=== PATIENT | male | born 1965 | race African-American/Black ===

== ENCOUNTER 2017-10-13 22:30 | Inpatient (IN) | payer OTHER ==
[2017-10-13 22:40] VITALS: BMI 29.9
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
[2017-10-13] MEDS ORDERED: METHADONE HCL 10 MG TABLET (FOR DETOX USE ONLY) PO ONE ×2 (23:00→23:07)
[2017-10-13] MEDS ORDERED: IBUPROFEN 400 MG TABLET (FP) PO PRN (23:07)
[2017-10-13] MEDS ORDERED: chlordiazePOXIDE HCL 25 MG CAPSULE PO PRN (23:07)
[2017-10-13] MEDS ORDERED: ACETAMINOPHEN 325 MG TABLET (FP) PO PRN (23:07)
[2017-10-13] MEDS ORDERED: MAGNESIUM HYDROX 2400MG/30ML ORAL SUSPENSION 30 ML CUP PO PRN (23:07)
[2017-10-13] MEDS ORDERED: MENTHOL/PHENOL 1 EACH UD MM PRN (23:07)
[2017-10-13] MEDS ORDERED: P-EPHED 60MG/TRIPROLIDI 2.5MG TABLET PO PRN (23:07)
[2017-10-13] MEDS ORDERED: LOPERAMIDE HCL 2 MG CAPSULE PO PRN (23:07)
[2017-10-13] MEDS ORDERED: chlordiazePOXIDE HCL 25 MG CAPSULE PO ONE (23:07)
[2017-10-13] MEDS ORDERED: guaiFENesin/D-METHORPHAN HB 10 ML UNIT-DOSE CUPS PO PRN (23:07)
[2017-10-13] MEDS ORDERED: NICOTINE POLACRILEX 2 MG GUM BC PRN (23:07)
[2017-10-13] MEDS ORDERED: MAG HYDROX/AL HYDROX/SIMETH 30 ML UNIT-DOSE CUP PO PRN (23:07)
[2017-10-13] MEDS ORDERED: MAGNESIUM CITRATE 300 ML BOTTLE PO PRN (23:07)
[2017-10-13] MEDS ORDERED: hydrOXYzine PAMOATE 50 MG CAPSULE (FP) PO PRN (23:07)
[2017-10-13] MEDS ORDERED: ALBUTEROL SO4 18 GM HFA INHALER IH PRN (23:10)
[2017-10-13] MEDS: chlordiazePOXIDE HCL 25 MG CAPSULE PO SCH (23:44)
[2017-10-14 02:14] LABS: URINE APPEARANCE SLCLOUDY; URINE BILIRUBIN NEGATIVE (NEGATIVE); URINE BLOOD NEGATIVE (NEGATIVE); URINE COLOR AMBER; URINE GLUCOSE (UA) NEGATIVE (NEGATIVE); URINE KETONE NEGATIVE (NEGATIVE); URINE NITRITE NEGATIVE (NEGATIVE); URINE PROTEIN NEGATIVE (NEGATIVE); URINE UROBILINOGEN 4.0 E.U/dl mg/dL (0.2-1.0)
[2017-10-14] MEDS: chlordiazePOXIDE HCL 25 MG CAPSULE PO SCH ×4 (05:10→22:11)
--- NOTE | 2017-10-14 09:02 | EKG ---
Test Reason : Blood Pressure : / mmHG Vent. Rate : 083 BPM Atrial Rate : 083 BPM P-R Int : 124 ms QRS Dur : 074 ms QT Int : 358 ms P-R-T Axes : 072 -06 037 degrees QTc Int : 420 ms SINUS RHYTHM WITH MARKED SINUS ARRHYTHMIA POSSIBLE LEFT ATRIAL ENLARGEMENT BORDERLINE ECG NO PREVIOUS ECGS AVAILABLE Confirmed by OMA DESAI MD ([id number]) on 10/14/2017 9:01:44 AM Referred By: DORY CELESTE Confirmed By:OMA DESAI MD
[2017-10-14] MEDS ORDERED: METHADONE HCL 10 MG TABLET (FOR DETOX USE ONLY) PO SCH (10:00)
[2017-10-14] MEDS: NICOTINE 14 MG/24 HOURS TOPICAL PATCH TD SCH (10:13)
[2017-10-14] MEDS: PRENATAL VITAMINS W/ FOLIC ACID TABLET (FP) PO SCH (10:13)
[2017-10-14 10:49] LABS: URINE LEUK ESTERASE Negative (NEGATIVE)
--- NOTE | 2017-10-14 14:26 | PN ---
[facility] CIWA - CIWA Score Nausea/Vomitin-No Nausea/No Vomiting Muscle Tremors: 2 Anxiety: 5 Agitation: 4-Moderately Restless Paroxysmal Sweats: No Perspiration Orientation: 4Disoriented Place/Person Tacttile Disturbances: 2-Mild Itch/Numbness/Burn Auditory Disturbances: 0-None Visual Disturbances: 2-Mild Sensitivity Headache: 0-None Present CIWA-Ar Total Score: 19 S COWS - Scale Resting Pulse: 0= [place] 80 or Below Sweatin= Chills/Flushing Restless Observation: 0= Sits Still Pupil Size: 0= Normal to Room Light Bone or Joint Aches: 2= Severe Diffuse Aches Runny Nose/ Eye Tearin= Runny Nose/Eyes GI Upset > 30mins: 2= Nausea/Diarrhea Tremor Observation of Outstretched Hands: 0= None Yawning Observation: 0= None Anxiety or Irritability: 2=Irritable/Anxious Goose Flesh Skin: 3=Piloerection COWS Score: 12 S Progress Note (SOAP) Subjective: Body Aches, Diarrhea, Interrupted sleep, Anxious. Objective: PT. A & O X 2 (UNCERTAIN ABOUT CURRENT LOCATION). NO ACUTE DISTRESS. 10/14/17 14:23 Vital Signs Temperature 96.4 F L 10/14/17 13:21 Pulse Rate 56 L 10/14/17 13:21 Respiratory Rate 18 10/14/17 13:21 Blood Pressure 128/76 10/14/17 13:21 O2 Sat by Pulse Oximetry (%) Laboratory Tests 10/13/17 23:00 Urine Color Jessica Urine Appearance Slcloudy Urine pH 5.0 Ur Specific [place] 1.029 Urine Protein Negative Urine Glucose (UA) Negative Urine Ketones Negative Urine Blood Negative Urine Nitrite Negative Urine Bilirubin Negative Urine Urobilinogen 4.0 e.u/dl Ur Leukocyte Esterase Negative UA RESULTS NOTED. PATIENT REFUSED TO HAVE OTHER ADMISSION LABS DRAWN. 10/14/17 14:25 Assessment: 10/14/17 14:25 WITHDRAWAL SYMPTOMS. Plan: CONTINUE DETOX. PRN IMMODIUM FOR DIARRHEA. INCREASE DAILY PO FLUID INTAKE. ENCOURAGE AMBULATION.
[2017-10-14] MEDS ORDERED: THIAMINE HCL 100 MG TABLET (FP) PO SCH (22:00)
[2017-10-15] MEDS: chlordiazePOXIDE HCL 25 MG CAPSULE PO SCH ×2 (05:10→10:28)
[2017-10-15] MEDS ORDERED: METHADONE HCL 5 MG TABLET (FOR DETOX USE ONLY) PO SCH (10:00)
[2017-10-15] MEDS: PRENATAL VITAMINS W/ FOLIC ACID TABLET (FP) PO SCH (10:27)
[2017-10-15] MEDS: NICOTINE 14 MG/24 HOURS TOPICAL PATCH TD SCH (10:27)
[2017-10-15 13:17] VITALS: BP 144/78; PULSE 59; TEMP 98.7
--- NOTE | 2017-10-15 15:03 | PN ---
S CIWA - CIWA Score Nausea/Vomitin-Mild Nausea/No Vomiting Muscle Tremors: 4-Moderate,w/Arms Extend Anxiety: 5 Agitation: 4-Moderately Restless Paroxysmal Sweats: 3 Orientation: 0-Oriented Tacttile Disturbances: 1-Very Mild Itch/Numbness Auditory Disturbances: 0-None Visual Disturbances: 0-None Headache: 2-Mild CIWA-Ar Total Score: 20 BHS COWS - Scale Resting Pulse: 0= [place] 80 or Below Sweatin=Flushed/Facial Moisture Restless Observation: 3= Extraneous Movement Pupil Size: 0= Normal to Room Light Bone or Joint Aches: 2= Severe Diffuse Aches Runny Nose/ Eye Tearin= Runny Nose/Eyes GI Upset > 30mins: 3= Vomiting/Diarrhea Tremor Observation of Outstretched Hands: 2= Slight Tremor Visible Yawning Observation: 0= None Anxiety or Irritability: 2=Irritable/Anxious Goose Flesh Skin: 0=Smooth Skin COWS Score: 16 BHS Progress Note (SOAP) Subjective: Poor appetite, loud, angry, very agitated and irritable, (patient is disrespectful to abstract writer and staff), abdominal cramps, interrupted sleep, diarrhea Objective: 10/15/17 15:02 Last Vital Signs Temp Pulse Resp BP Pulse Ox 98.7 F 59 L 18 144/78 10/15/17 13:16 10/15/17 13:16 10/15/17 13:16 10/15/17 13:16 Laboratory Tests 10/13/17 23:00 Urine Color Jessica Urine Appearance Slcloudy Urine pH 5.0 Ur Specific [place] 1.029 Urine Protein Negative Urine Glucose (UA) Negative Urine Ketones Negative Urine Blood Negative Urine Nitrite Negative Urine Bilirubin Negative Urine Urobilinogen 4.0 e.u/dl Ur Leukocyte Esterase Negative UA result noted No CBC/Chemistry result available Assessment: 10/15/17 15:03 Withdrawal symptoms Plan: Continue detox Encouraged to drink lots of water
--- NOTE | 2017-10-15 15:07 | DS ---
[facility] Detox Discharge Summary Admission Date: 10/13/17 Discharge Date: 10/15/17 - History Present History: Alcohol Dependence, Opioid Dependence Pertinent Past History: Asthma - Physical Exam Results Vital Signs: Vital Signs Temperature 98.7 F 10/15/17 13:16 Pulse Rate 59 L 10/15/17 13:16 Respiratory Rate 18 10/15/17 13:16 Blood Pressure 144/78 10/15/17 13:16 O2 Sat by Pulse Oximetry (%) Pertinent Admission Physical Exam Findings: Withdrawal symptoms Last Vital Signs Temp Pulse Resp BP Pulse Ox 98.7 F 59 L 18 144/78 10/15/17 13:16 10/15/17 13:16 10/15/17 13:16 10/15/17 13:16 Laboratory Tests 10/13/17 23:00 Urine Color Jessica Urine Appearance Slcloudy Urine pH 5.0 Ur Specific [place] 1.029 Urine Protein Negative Urine Glucose (UA) Negative Urine Ketones Negative Urine Blood Negative Urine Nitrite Negative Urine Bilirubin Negative Urine Urobilinogen 4.0 e.u/dl Ur Leukocyte Esterase Negative UA noted - Medication Discharge Medications: Ambulatory Orders Albuterol Sulfate Inhaler - [Ventolin Hfa Inhaler -] 2 inh PO Q6H 10/13/17 - Diagnosis (1) Alcohol dependence with uncomplicated withdrawal Current Visit: Yes Status: Acute (2) Opioid dependence with withdrawal Current Visit: Yes Status: Acute (3) Asthma Current Visit: Yes Status: Chronic (4) Nicotine dependence Current Visit: Yes Status: Chronic - AMA Did Patient Leave Against Medical Advice: Yes (F/U with PCP within 3 days)
[2017-10-15] MEDS ORDERED: chlordiazePOXIDE 5 MG CAPSULE PO SCH (23:00)
[2017-10-16] MEDS ORDERED: chlordiazePOXIDE HCL 10 MG CAPSULE PO SCH (23:00)
[2017-10-17] MEDS ORDERED: METHADONE HCL 10 MG TABLET (FOR DETOX USE ONLY) PO SCH (10:00)
[2017-10-18] MEDS ORDERED: METHADONE HCL 5 MG TABLET (FOR DETOX USE ONLY) PO SCH (06:00)
== END 2017-10-15 14:51 | disposition home or self-care (01) | DRG 773 ==
LOC: YASAS 22:30 → Y3N 22:46
PROVIDERS: ADMIT Internal Medicine; ATTEND Internal Medicine
PROC: HZ2ZZZZ Detoxification Services for Substance Abuse Treatment (ICD-10-PCS; principal; 2017-10-13)
DX: F11.23 Opioid dependence with withdrawal (principal); F10.230 Alcohol dependence with withdrawal, uncomplicated; F17.210 Nicotine dependence, cigarettes, uncomplicated; J45.909 Unspecified asthma, uncomplicated
CPT/HCPCS: 81003; 93005; 93010

== ENCOUNTER 2019-12-20 10:15 | Inpatient (IN) | payer OTHER ==
[2019-12-20 11:03] VITALS: BMI 29.9
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
[2019-12-20] MEDS ORDERED: MENTHOL/PHENOL 1 EACH UD MM PRN (11:08)
[2019-12-20] MEDS ORDERED: MAGNESIUM HYDROX 2400MG/30ML ORAL SUSPENSION 30 ML CUP PO PRN (11:08)
[2019-12-20] MEDS ORDERED: MAGNESIUM CITRATE 300 ML BOTTLE PO PRN (11:08)
[2019-12-20] MEDS ORDERED: ACETAMINOPHEN 325 MG TABLET (FP) PO PRN ×2 (11:08)
[2019-12-20] MEDS ORDERED: BISMUTH SUBSALICYLATE 262 MG/15 ML BTL PO PRN (11:08)
[2019-12-20] MEDS ORDERED: IBUPROFEN 400 MG TABLET (FP) PO PRN (11:08)
[2019-12-20] MEDS ORDERED: METHADONE HCL 10 MG TABLET (FOR DETOX USE ONLY) PO ONE (11:50)
[2019-12-20] MEDS: hydrOXYzine PAMOATE 25 MG CAPSULE (FP) PO PRN (12:11)
[2019-12-20] MEDS: ALBUTEROL SO4 HFA INHALER IH SCH ×3 (12:13→23:06)
[2019-12-20] MEDS: cloNIDine HCL 0.1 MG TABLET PO PRN (12:18)
[2019-12-20 14:47] LABS: HEMATOCRIT 39.8 % (35.4-49); HEMOGLOBIN 13.6 GM/dL (11.7-16.9); MCH 29.6 pg (25.7-33.7); MEAN CELL VOLUME 86.9 fl (80-96); MEAN PLT VOLUME 9.4 fl (7.5-11.1); PLATELET COUNT 151 K/MM3 (134-434); RBC 4.58 M/mm3 (4.00-5.60); RDW 13.5 % (11.9-15.9); WHITE BLOOD COUNT 4.8 K/mm3 (4.0-10.0)
[2019-12-20 14:55] LABS: ALBUMIN 3.9 g/dl (3.4-5.0); BILIRUBIN,TOTAL 0.6 mg/dL (0.2-1); BLOOD UREA NITROGEN 17.1 mg/dL (7-18); CALCIUM 8.8 mg/dL (8.5-10.1); TOT PROT 7.8 g/dl (6.4-8.2)
[2019-12-20] MEDS: THIAMINE HCL 100 MG TABLET (FP) PO SCH (23:05)
[2019-12-20] MEDS: MELATONIN 5 MG TABLETS PO PRN (23:06)
[2019-12-21] MEDS: ALBUTEROL SO4 HFA INHALER IH SCH ×4 (05:21→23:24)
[2019-12-21] MEDS ORDERED: METHADONE HCL 5 MG TABLET (FOR DETOX USE ONLY) ONE (09:40)
[2019-12-21] MEDS ORDERED: METHADONE HCL 10 MG TABLET (FOR DETOX USE ONLY) ONE (09:40)
[2019-12-21] MEDS ORDERED: METHADONE (DETOX) 20 MG, METHADONE (DETOX) 5 MG PO ONE (10:00)
--- NOTE | 2019-12-21 10:16 | PN ---
BHS COWS - Scale Resting Pulse: 0= [place] 80 or Below Sweatin= Chills/Flushing Restless Observation: 1= Difficult to Sit Still Pupil Size: 0= Normal to Room Light Bone or Joint Aches: 2= Severe Diffuse Aches Runny Nose/ Eye Tearin= Nasal Congestion GI Upset > 30mins: 2= Nausea/Diarrhea Tremor Observation of Outstretched Hands: 1= Tremor [place], Not Seen Yawning Observation: 0= None Anxiety or Irritability: 1=Feels Anxious/Irritable Goose Flesh Skin: 3=Piloerection COWS Score: 12 BHS Progress Note (SOAP) Subjective: Interrupted sleep, abdominal cramps, generalized pain Objective: 12/21/19 10:14 Withdrawal sx Laboratory Last Values WBC 4.8 K/mm3 (4.0-10.0) 12/20/19 11:55 RBC 4.58 M/mm3 (4.00-5.60) 12/20/19 11:55 Hgb 13.6 GM/dL (11.7-16.9) 12/20/19 11:55 Hct 39.8 % (35.4-49) 12/20/19 11:55 MCV 86.9 fl (80-96) 12/20/19 11:55 MCH 29.6 pg (25.7-33.7) 12/20/19 11:55 MCHC 34.0 g/dl (32.0-35.9) 12/20/19 11:55 RDW 13.5 % (11.9-15.9) 12/20/19 11:55 Plt Count 151 K/MM3 (134-434) 12/20/19 11:55 MPV 9.4 fl (7.5-11.1) 12/20/19 11:55 Sodium 139 mmol/L (136-145) 12/20/19 11:55 Potassium 4.0 mmol/L (3.5-5.1) 12/20/19 11:55 Chloride 108 mmol/L (98-107) H 12/20/19 11:55 Carbon Dioxide 25 mmol/L (21-32) 12/20/19 11:55 Anion Gap 6 MMOL/L (8-16) L 12/20/19 11:55 BUN 17.1 mg/dL (7-18) 12/20/19 11:55 Creatinine 1.0 mg/dL (0.55-1.3) 12/20/19 11:55 Est GFR (CKD-EPI)AfAm 97.08 12/20/19 11:55 Est GFR (CKD-EPI)NonAf 83.76 12/20/19 11:55 Random Glucose 97 mg/dL (74-106) 12/20/19 11:55 Calcium 8.8 mg/dL (8.5-10.1) 12/20/19 11:55 Total Bilirubin 0.6 mg/dL (0.2-1) 12/20/19 11:55 AST 25 U/L (15-37) 12/20/19 11:55 ALT 37 U/L (13-61) 12/20/19 11:55 Alkaline Phosphatase 92 U/L (45-117) 12/20/19 11:55 Total Protein 7.8 g/dl (6.4-8.2) 12/20/19 11:55 Albumin 3.9 g/dl (3.4-5.0) 12/20/19 11:55 Labs noted Vital Signs 12/21/19 12/21/19 03:33 06:20 Temperature 98.1 F Pulse Rate 55 L Respiratory 18 16 Rate Blood Pressure 146/86 VSS No apparent distress Assessment: 12/21/19 10:15 Withdrawal sx Plan: Continue detox Encourage oral fluid intake
[2019-12-21] MEDS: PRENATAL VITAMINS W/ FOLIC ACID TABLET (FP) PO SCH (10:40)
[2019-12-21] MEDS: NICOTINE 7 MG/24 HOURS TOPICAL PATCH TD SCH (10:40)
[2019-12-21] MEDS: METHOCARBAMOL 500 MG TABLET PO PRN (10:43)
[2019-12-21] MEDS: hydrOXYzine PAMOATE 25 MG CAPSULE (FP) PO PRN ×2 (11:30→22:07)
[2019-12-21] MEDS: THIAMINE HCL 100 MG TABLET (FP) PO SCH (22:06)
[2019-12-21] MEDS: MELATONIN 5 MG TABLETS PO PRN (22:07)
[2019-12-21] MEDS ORDERED: TRIMETHOBENZAMIDE HCL 200MG/2ML INJ IM ONE (23:37)
[2019-12-21] MEDS ORDERED: PROCHLORPERAZINE MALEATE 5 MG TABLET PO PRN (23:37)
[2019-12-22] MEDS: hydrOXYzine PAMOATE 25 MG CAPSULE (FP) PO PRN ×3 (00:47→22:03)
[2019-12-22] MEDS ORDERED: METHADONE HCL 10 MG TABLET (FOR DETOX USE ONLY) PO ONE ×2 (02:13→10:00)
--- NOTE | 2019-12-22 02:19 | PN ---
[facility] Progress Note Note: C/o continued discomfort and nausea. States withdrawal symptoms are too much. States wants to leave now and use. States, loudly, " You don't understand". States "I just need to feel comfortable " Assess: Increased facial moisture Increased bowel sounds. Abd soft and non-tender. Pupils = and 3 mm. Lungs CTA Blood pressure elevated. Vital Signs 12/21/19 12/22/19 12/22/19 20:25 00:05 00:27 Temperature 98.6 F Pulse Rate 50 L Respiratory 18 18 18 Rate Blood Pressure 146/71 12/22/19 00:41 Temperature Pulse Rate 49 L Respiratory Rate Blood Pressure 170/82 Plan: Clonidine 0.1 po now Once dose methadone 10 mg PO now. Discussed the risks of overdose. Discussed the benefits of staying needs to outweigh leaving.
[2019-12-22] MEDS: cloNIDine HCL 0.1 MG TABLET PO PRN ×2 (02:27→10:18)
[2019-12-22] MEDS: ALBUTEROL SO4 HFA INHALER IH SCH ×3 (06:16→18:21)
[2019-12-22] MEDS: PRENATAL VITAMINS W/ FOLIC ACID TABLET (FP) PO SCH (10:16)
[2019-12-22] MEDS: NICOTINE 7 MG/24 HOURS TOPICAL PATCH TD SCH (10:20)
--- NOTE | 2019-12-22 11:32 | PN ---
BHS COWS - Scale Resting Pulse: 0= [place] 80 or Below Sweatin= Chills/Flushing Restless Observation: 0= Sits Still Pupil Size: 0= Normal to Room Light Bone or Joint Aches: 2= Severe Diffuse Aches Runny Nose/ Eye Tearin= Runny Nose/Eyes GI Upset > 30mins: 1= Stomach Cramp Tremor Observation of Outstretched Hands: 2= Slight Tremor Visible Yawning Observation: 0= None Anxiety or Irritability: 2=Irritable/Anxious Goose Flesh Skin: 0=Smooth Skin COWS Score: 10 BHS Progress Note (SOAP) Subjective: Stomachache, vomiting all night, restless, interrupted sleep, agitation Objective: 12/22/19 11:30 Last Vital Signs Temp Pulse Resp BP Pulse Ox 98.8 F 49 L 18 153/66 12/22/19 08:58 12/22/19 08:58 12/22/19 08:58 12/22/19 08:58 Elevated b/p: denies htn, on clonidine prn Laboratory Tests 12/20/19 12/20/19 12/20/19 11:55 11:55 11:55 WBC 4.8 RBC 4.58 Hgb 13.6 Hct 39.8 MCV 86.9 MCH 29.6 MCHC 34.0 RDW 13.5 Plt Count 151 MPV 9.4 Sodium 139 Potassium 4.0 Chloride 108 H Carbon Dioxide 25 Anion Gap 6 L BUN 17.1 Creatinine 1.0 Est GFR (CKD-EPI)AfAm 97.08 Est GFR (CKD-EPI)NonAf 83.76 Random Glucose 97 Calcium 8.8 Total Bilirubin 0.6 AST 25 ALT 37 Alkaline Phosphatase 92 Total Protein 7.8 Albumin 3.9 RPR Titer Nonreactive Labs reviewed Assessment: 12/22/19 11:30 Withdrawal sxs Elevated b/p noted Plan: Continue detox Encouraged PO water hydration Ensure one cup PO bid prn poor appetite Repeat BMP due to c/o vomiting all night Elevated b/p: monitor b/p, continue prn clonidine
[2019-12-22] MEDS: MELATONIN 5 MG TABLETS PO PRN (22:03)
[2019-12-22] MEDS: METHOCARBAMOL 500 MG TABLET PO PRN (22:03)
[2019-12-22] MEDS: THIAMINE HCL 100 MG TABLET (FP) PO SCH (22:03)
[2019-12-23] MEDS: ALBUTEROL SO4 HFA INHALER IH SCH ×5 (01:01→23:23)
[2019-12-23] MEDS ORDERED: cloNIDine HCL 0.1 MG TABLET PO ONE (09:33)
--- NOTE | 2019-12-23 09:38 | PN ---
S CIWA - CIWA Score Nausea/Vomitin-Mild Nausea/No Vomiting Muscle Tremors: 2 Anxiety: 2 Agitation: 2 Paroxysmal Sweats: No Perspiration Orientation: 0-Oriented Tacttile Disturbances: 1-Very Mild Itch/Numbness Auditory Disturbances: 0-None Visual Disturbances: 0-None Headache: 1-Very Mild CIWA-Ar Total Score: 9 BHS Progress Note (SOAP) Subjective: alert,irritable,anxious,interrupted sleep,nausea,pain in the body Objective: 12/23/19 09:37 Vital Signs Temperature 98.6 F 12/23/19 07:29 Pulse Rate 52 L 12/23/19 07:29 Respiratory Rate 18 12/23/19 07:29 Blood Pressure 128/72 12/23/19 07:29 O2 Sat by Pulse Oximetry (%) Assessment: 12/23/19 09:37 withdrawal symptom Plan: continue detox methadone regimen,clonidine 0.1mg bid
[2019-12-23] MEDS ORDERED: METHADONE HCL 10 MG TABLET (FOR DETOX USE ONLY) ONE (09:39)
[2019-12-23] MEDS ORDERED: METHADONE HCL 5 MG TABLET (FOR DETOX USE ONLY) ONE (09:39)
[2019-12-23] MEDS ORDERED: METHADONE (DETOX) 10 MG, METHADONE (DETOX) 5 MG PO ONE (10:00)
[2019-12-23] MEDS: PRENATAL VITAMINS W/ FOLIC ACID TABLET (FP) PO SCH (10:29)
[2019-12-23] MEDS: hydrOXYzine PAMOATE 25 MG CAPSULE (FP) PO PRN (10:30)
[2019-12-23] MEDS: NICOTINE 7 MG/24 HOURS TOPICAL PATCH TD SCH (10:31)
[2019-12-23] MEDS: cloNIDine HCL 0.1 MG TABLET PO SCH ×2 (10:33→22:12)
[2019-12-23] MEDS: MAG HYDROX/AL HYDROX/SIMETH 30 ML UNIT-DOSE CUP PO PRN ×2 (10:33→22:14)
[2019-12-23] MEDS: THIAMINE HCL 100 MG TABLET (FP) PO SCH (22:12)
[2019-12-23] MEDS: MELATONIN 5 MG TABLETS PO PRN (22:15)
[2019-12-24] MEDS: ALBUTEROL SO4 HFA INHALER IH SCH ×4 (05:28→23:14)
--- NOTE | 2019-12-24 09:46 | PN ---
BHS COWS - Scale Resting Pulse: 0= [place] 80 or Below Sweatin= No chills or Flushing Restless Observation: 0= Sits Still Pupil Size: 1= Pupils >than Normal Bone or Joint Aches: 1= Mild Discomfort Runny Nose/ Eye Tearin= Nasal Congestion GI Upset > 30mins: 1= Stomach Cramp Tremor Observation of Outstretched Hands: 1= Tremor [place], Not Seen Yawning Observation: 0= None Anxiety or Irritability: 1=Feels Anxious/Irritable Goose Flesh Skin: 0=Smooth Skin COWS Score: 6 BHS Progress Note (SOAP) Subjective: alert,irritable,interrupted sleep,pain in the body Objective: 12/24/19 09:45 Vital Signs Temperature 98.8 F 12/24/19 08:30 Pulse Rate 68 12/24/19 08:30 Respiratory Rate 18 12/24/19 08:30 Blood Pressure 122/66 12/24/19 08:30 O2 Sat by Pulse Oximetry (%) Assessment: 12/24/19 09:46 withdrawal symptom Plan: continue detox methadone regimen,discharge in am
[2019-12-24] MEDS: PRENATAL VITAMINS W/ FOLIC ACID TABLET (FP) PO SCH (09:51)
[2019-12-24] MEDS: cloNIDine HCL 0.1 MG TABLET PO SCH ×2 (09:51→22:05)
[2019-12-24] MEDS: NICOTINE 7 MG/24 HOURS TOPICAL PATCH TD SCH (09:52)
[2019-12-24] MEDS ORDERED: METHADONE HCL 10 MG TABLET (FOR DETOX USE ONLY) PO ONE (10:00)
[2019-12-24] MEDS: MELATONIN 5 MG TABLETS PO PRN (22:05)
[2019-12-24] MEDS: THIAMINE HCL 100 MG TABLET (FP) PO SCH (22:06)
[2019-12-25] MEDS ORDERED: METHADONE HCL 5 MG TABLET (FOR DETOX USE ONLY) PO ONE (06:00)
[2019-12-25] MEDS: ALBUTEROL SO4 HFA INHALER IH SCH ×2 (07:53→11:09)
--- NOTE | 2019-12-25 09:17 | DS ---
[facility] Detox Discharge Summary Admission Date: 12/20/19 Discharge Date: 12/25/19 (appox@35min to discharge) - History Present History: Alcohol Dependence, Opioid Dependence - Physical Exam Results Vital Signs: Vital Signs Temperature 99.3 F 12/24/19 20:30 Pulse Rate 59 L 12/24/19 20:30 Respiratory Rate 18 12/25/19 03:38 Blood Pressure 115/60 12/24/19 20:30 O2 Sat by Pulse Oximetry (%) Pertinent Admission Physical Exam Findings: Vital Signs Temperature 99.3 F 12/24/19 20:30 Pulse Rate 59 L 12/24/19 20:30 Respiratory Rate 18 12/25/19 03:38 Blood Pressure 115/60 12/24/19 20:30 O2 Sat by Pulse Oximetry (%) Laboratory Tests 12/20/19 12/20/19 12/20/19 11:55 11:55 11:55 WBC 4.8 RBC 4.58 Hgb 13.6 Hct 39.8 MCV 86.9 MCH 29.6 MCHC 34.0 RDW 13.5 Plt Count 151 MPV 9.4 Sodium 139 Potassium 4.0 Chloride 108 H Carbon Dioxide 25 Anion Gap 6 L BUN 17.1 Creatinine 1.0 Est GFR (CKD-EPI)AfAm 97.08 Est GFR (CKD-EPI)NonAf 83.76 Random Glucose 97 Calcium 8.8 Total Bilirubin 0.6 AST 25 ALT 37 Alkaline Phosphatase 92 Total Protein 7.8 Albumin 3.9 RPR Titer Nonreactive aaox3 ambulating no acute distress lungs CTA - Treatment Hospital Course: Detox Protocol Followed, Detoxed Safely, Responded well, Discharged Condition Good, Rehab Referral Accepted Patient has Accepted a Rehab Referral to: Fernando KOEHLER in patient rehab - Medication Discharge Medications: Ambulatory Orders Albuterol Sulfate Inhaler - [Ventolin Hfa Inhaler -] 2 inh PO Q6H 10/13/17 - Diagnosis (1) Alcohol dependence with uncomplicated withdrawal Current Visit: Yes Status: Chronic (2) Opioid dependence with withdrawal Current Visit: Yes Status: Chronic (3) Asthma Current Visit: Yes Status: Chronic Qualifiers: Asthma severity: mild Asthma persistence: unspecified Asthma complication type: unspecified Qualified Code(s): J45.909 - Unspecified asthma , uncomplicated (4) Nicotine dependence Current Visit: Yes Status: Chronic Qualifiers: Nicotine product type: cigarettes Substance use status: uncomplicated Qualified Code(s): F17.210 - Nicotine dependence, cigarettes, uncomplicated - AMA Did Patient Leave Against Medical Advice: No
[2019-12-25 09:54] VITALS: BP 113/55; PULSE 60; TEMP 98.1
[2019-12-25] MEDS: cloNIDine HCL 0.1 MG TABLET PO SCH (11:00)
[2019-12-25] MEDS: NICOTINE 7 MG/24 HOURS TOPICAL PATCH TD SCH (11:00)
[2019-12-25] MEDS: PRENATAL VITAMINS W/ FOLIC ACID TABLET (FP) PO SCH (11:00)
== END 2019-12-25 10:40 | disposition home or self-care (01) | DRG 773 ==
LOC: YASAS 10:15 → Y6N 11:38
PROVIDERS: ADMIT Allergy & Immunology; ATTEND Allergy & Immunology
PROC: HZ2ZZZZ Detoxification Services for Substance Abuse Treatment (ICD-10-PCS; principal; 2019-12-20)
DX: F11.23 Opioid dependence with withdrawal (principal); F10.230 Alcohol dependence with withdrawal, uncomplicated; F17.210 Nicotine dependence, cigarettes, uncomplicated; J45.909 Unspecified asthma, uncomplicated; R03.0 Elevated blood-pressure reading, without diagnosis of hypertension
CPT/HCPCS: 36415; 80053; 85027; 86593; J0735

== ENCOUNTER 2020-05-25 10:44 | Inpatient (IN) | payer OTHER ==
--- NOTE | 2020-05-25 11:07 | BHS.RME ---
Substance Use & Tx History - Substance Use History Alcohol Substance amount: 1/5 paramjit Frequency of use: Daily Substance route: Oral Date of Last Use: 05/24/20 Heroin Substance amount: 2 bundles Frequency of use: Daily Substance route: Inhalation (ex: sniffing or snorting), Injection (ex: intravenous or skin popping) Date of Last Use: 06/01/20 Marijuana/Hashish Frequency of use: Less than 3 times per week Substance route: Smoking Date of Last Use: 05/24/20 Nicotine Substance amount: 1/2 pack Frequency of use: Daily Substance route: Smoking Date of Last Use: 05/25/20 Physical/Psych/Mental Status - Behavior General Behavior: Increased activity (restlessness, agitation) Eye Contact: Normal - Cooperativeness Cooperativeness: Cooperative - Thinking Thought Processes: Tight, Logical, Goal Directed - Physical Health Problems Is patient presently having any pain?: No Does patient presently have any injuries (include location): No Does patient currently have a fever: No Is patient : No COWS - Scale Resting Pulse: 1= [place] 81-100 Sweatin= Beads of Sweat on Face Restless Observation: 1= Difficult to Sit Still Pupil Size: 1= Pupils >than Normal Bone or Joint Aches: 4=Acute Joint/Muscle Pain Runny Nose/ Eye Tearin= Runny Nose/Eyes GI Upset > 30mins: 2= Nausea/Diarrhea Tremor Observation: 2= Slight Tremor Visible Yawning Observation: 1= 1-2x During Session Anxiety or Irritability: 2=Irritable/Anxious Goose Flesh Skin: 3=Piloerection COWS Score: 22 CIWA Nausea/Vomitin Muscle Tremors: 3 Anxiety: 2 Agitation: 2 Paroxysmal Sweats: 5 Orientation: 1-Uncertain about Date Tacttile Disturbances: 0-None Auditory Disturbances: 0-None Visual Disturbances: 0-None Headache: 2-Mild CIWA-Ar Total Score: 17
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
[2020-05-25] MEDS ORDERED: IBUPROFEN 400 MG TABLET (FP) PO PRN (12:12)
[2020-05-25] MEDS ORDERED: MENTHOL/PHENOL 1 EACH UD MM PRN (12:12)
[2020-05-25] MEDS ORDERED: cloNIDine HCL 0.1 MG TABLET PO PRN (12:12)
[2020-05-25] MEDS ORDERED: BISMUTH SUBSALICYLATE 524 MG/30 ML UD PO PRN (12:12)
[2020-05-25] MEDS ORDERED: MAGNESIUM HYDROX 2400MG/30ML ORAL SUSPENSION 30 ML CUP PO PRN (12:12)
[2020-05-25] MEDS ORDERED: chlordiazePOXIDE HCL 25 MG CAPSULE PO PRN (12:12)
[2020-05-25] MEDS ORDERED: ACETAMINOPHEN 325 MG TABLET (FP) PO PRN ×2 (12:12)
[2020-05-25] MEDS ORDERED: MAG HYDROX/AL HYDROX/SIMETH 30 ML UNIT-DOSE CUP PO PRN (12:12)
[2020-05-25] MEDS ORDERED: NICOTINE POLACRILEX 2 MG GUM BUC PRN (12:12)
[2020-05-25] MEDS ORDERED: METHOCARBAMOL 500 MG TABLET PO PRN (12:12)
[2020-05-25] MEDS ORDERED: MAGNESIUM CITRATE 300 ML BOTTLE PO PRN (12:12)
[2020-05-25] MEDS ORDERED: ONDANSETRON *ODT* 4 MG TABLET SL PRN (12:12)
[2020-05-25] MEDS ORDERED: ALBUTEROL SO4 HFA INHALER IH PRN (12:15)
[2020-05-25 12:26] VITALS: BMI 29.7
--- NOTE | 2020-05-25 13:34 | EKG ---
Test Reason : Blood Pressure : / mmHG Vent. Rate : 061 BPM Atrial Rate : 061 BPM P-R Int : 132 ms QRS Dur : 094 ms QT Int : 422 ms P-R-T Axes : 066 -28 020 degrees QTc Int : 424 ms NORMAL SINUS RHYTHM POSSIBLE LEFT ATRIAL ENLARGEMENT BORDERLINE ECG WHEN COMPARED WITH ECG OF 28-JAN-2020 18:27, NO SIGNIFICANT CHANGE WAS FOUND Confirmed by Vani Lemus ([id number]) on 05/25/2020 1:34:20 PM Referred By: Confirmed By:Vani Lemus
[2020-05-25] MEDS ORDERED: METHADONE HCL 10 MG TABLET (FOR DETOX USE ONLY) PO ONE (13:45)
[2020-05-25] MEDS: NICOTINE 14 MG/24 HOURS TOPICAL PATCH TD SCH (13:48)
[2020-05-25] MEDS: PRENATAL VITAMINS W/ FOLIC ACID TABLET (FP) PO SCH (13:48)
[2020-05-25] MEDS ORDERED: hydrOXYzine PAMOATE 25 MG CAPSULE (FP) PO SCH (14:00)
--- NOTE | 2020-05-25 14:18 | PN ---
S Progress Note Note: continuity writer is unable to locate negative ppd on 11/14/19 mr mcwilliams refuses ppd upon admission on 05/25/20 chest x ray rule out ppd ordered
[2020-05-25] MEDS: hydrOXYzine PAMOATE 50 MG CAPSULE (FP) PO SCH ×3 (15:59→23:10)
[2020-05-25 17:25] LABS: HEMATOCRIT 40.1 % (35.4-49); HEMOGLOBIN 13.5 GM/dL (11.7-16.9); MCH 28.8 pg (25.7-33.7); MCHC 33.6 g/dl (32.0-35.9); MEAN CELL VOLUME 85.7 fl (80-96); MEAN PLT VOLUME 9.5 fl (7.5-11.1); PLATELET COUNT 147 K/MM3 (134-434); RBC 4.68 M/mm3 (4.00-5.60); RDW 15.1 % (11.9-15.9); WHITE BLOOD COUNT 4.8 K/mm3 (4.0-10.0)
[2020-05-25 17:41] LABS: ALBUMIN 3.8 g/dl (3.4-5.0); BILIRUBIN,TOTAL 0.6 mg/dL (0.2-1); BLOOD UREA NITROGEN 17.4 mg/dL (7-18); CALCIUM 9.4 mg/dL (8.5-10.1); TOT PROT 7.8 g/dl (6.4-8.2)
[2020-05-25] MEDS: chlordiazePOXIDE HCL 25 MG CAPSULE PO SCH ×2 (18:10→22:34)
[2020-05-25] MEDS ORDERED: THIAMINE HCL 100 MG TABLET (FP) PO SCH (22:00)
[2020-05-25] MEDS ORDERED: MELATONIN 5 MG TABLETS PO SCH (22:00)
[2020-05-26] MEDS: hydrOXYzine PAMOATE 50 MG CAPSULE (FP) PO SCH ×3 (03:58→11:15)
[2020-05-26] MEDS: chlordiazePOXIDE HCL 25 MG CAPSULE PO SCH ×3 (05:59→17:32)
[2020-05-26] MEDS ORDERED: METHADONE (DETOX) 20 MG, METHADONE (DETOX) 5 MG PO ONE (10:00)
[2020-05-26] MEDS ORDERED: METHADONE HCL 5 MG TABLET (FOR DETOX USE ONLY) ONE (10:05)
[2020-05-26] MEDS ORDERED: METHADONE HCL 10 MG TABLET (FOR DETOX USE ONLY) ONE (10:05)
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
[2020-05-26] MEDS: PRENATAL VITAMINS W/ FOLIC ACID TABLET (FP) PO SCH (10:27)
[2020-05-26] MEDS: NICOTINE 14 MG/24 HOURS TOPICAL PATCH TD SCH (10:46)
[2020-05-26] MEDS ORDERED: hydrOXYzine PAMOATE 50 MG CAPSULE (FP) PO PRN (11:15)
--- NOTE | 2020-05-26 11:37 | PN ---
S CIWA - CIWA Score Nausea/Vomitin Muscle Tremors: 2 Anxiety: 2 Agitation: 2 Paroxysmal Sweats: No Perspiration Orientation: 0-Oriented Tacttile Disturbances: 1-Very Mild Itch/Numbness Auditory Disturbances: 0-None Visual Disturbances: 0-None Headache: 2-Mild CIWA-Ar Total Score: 11 BHS COWS - Scale Resting Pulse: 0= [place] 80 or Below Sweatin= No chills or Flushing Restless Observation: 0= Sits Still Pupil Size: 0= Normal to Room Light Bone or Joint Aches: 2= Severe Diffuse Aches Runny Nose/ Eye Tearin= Nasal Congestion GI Upset > 30mins: 2= Nausea/Diarrhea Tremor Observation of Outstretched Hands: 2= Slight Tremor Visible Yawning Observation: 1= 1-2x During Session Anxiety or Irritability: 2=Irritable/Anxious Goose Flesh Skin: 0=Smooth Skin COWS Score: 10 S Progress Note (SOAP) Subjective: alert,irritable,anxious,interrupted sleep,pain in the body and back,nausea Objective: 05/26/20 11:36 Vital Signs Temperature 97.4 F L 05/26/20 08:30 Pulse Rate 65 05/26/20 08:30 Respiratory Rate 18 05/26/20 08:30 Blood Pressure 129/77 05/26/20 08:30 O2 Sat by Pulse Oximetry (%) 97 05/26/20 05:46 05/26/20 11:36 Laboratory Last Values WBC 4.8 K/mm3 (4.0-10.0) 05/25/20 12:25 RBC 4.68 M/mm3 (4.00-5.60) 05/25/20 12:25 Hgb 13.5 GM/dL (11.7-16.9) 05/25/20 12:25 Hct 40.1 % (35.4-49) 05/25/20 12:25 MCV 85.7 fl (80-96) 05/25/20 12:25 MCH 28.8 pg (25.7-33.7) 05/25/20 12:25 MCHC 33.6 g/dl (32.0-35.9) 05/25/20 12:25 RDW 15.1 % (11.9-15.9) D 05/25/20 12:25 Plt Count 147 K/MM3 (134-434) 05/25/20 12:25 MPV 9.5 fl (7.5-11.1) 05/25/20 12:25 Sodium 140 mmol/L (136-145) 05/25/20 12:25 Potassium 4.0 mmol/L (3.5-5.1) 05/25/20 12:25 Chloride 106 mmol/L (98-107) 05/25/20 12:25 Carbon Dioxide 24 mmol/L (21-32) 05/25/20 12:25 Anion Gap 10 MMOL/L (8-16) 05/25/20 12:25 BUN 17.4 mg/dL (7-18) 05/25/20 12:25 Creatinine 1.0 mg/dL (0.55-1.3) 05/25/20 12:25 Est GFR (CKD-EPI)AfAm 96.40 05/25/20 12:25 Est GFR (CKD-EPI)NonAf 83.18 05/25/20 12:25 Random Glucose 130 mg/dL (74-106) H 05/25/20 12:25 Calcium 9.4 mg/dL (8.5-10.1) 05/25/20 12:25 Total Bilirubin 0.6 mg/dL (0.2-1) 05/25/20 12:25 AST 43 U/L (15-37) H 05/25/20 12:25 ALT 45 U/L (13-61) 05/25/20 12:25 Alkaline Phosphatase 97 U/L (45-117) 05/25/20 12:25 Total Protein 7.8 g/dl (6.4-8.2) 05/25/20 12:25 Albumin 3.8 g/dl (3.4-5.0) 05/25/20 12:25 Syphilis Serology Non-reactive (NONREACTIVE) 05/25/20 12:25 COVID-19 (THIERRY) Not detected (Not Detected) 05/25/20 12:50 Assessment: 05/26/20 11:37 withdrawal symptom Plan: continue detox methadone and librium regimen
[2020-05-26 17:46] VITALS: BP 140/76; PULSE 52; TEMP 97.5
--- NOTE | 2020-05-26 18:36 | DS ---
[facility] Detox Discharge Summary Admission Date: 05/25/20 Discharge Date: 05/26/20 - History Additional Comments: Patient is leaving against medical advice. He refused to indicate any reason for his abrupt decision, stating that he is not obligated to discuss his business or reason for leaving. Risks and consequence of his action including overdose and reinforced. Patient verbalized understanding of instructions and signed the AMA form. He is alert and oriented to person, place and time, not in acute distress, ambulates without difficulties and not in acute withdrawal at this time. Discharge was completed in 30 minutes. Pertinent Past History: Alcohol dependence Opioid dependence Nicotine dependence Cannabis dependence Substance induced mood disorder Asthma - Physical Exam Results Vital Signs: Vital Signs Temperature 97.5 F L 05/26/20 16:48 Pulse Rate 52 L 05/26/20 16:48 Respiratory Rate 18 05/26/20 16:48 Blood Pressure 140/76 05/26/20 16:48 O2 Sat by Pulse Oximetry (%) 98 05/26/20 16:48 Laboratory Last Values WBC 4.8 K/mm3 (4.0-10.0) 05/25/20 12:25 RBC 4.68 M/mm3 (4.00-5.60) 05/25/20 12:25 Hgb 13.5 GM/dL (11.7-16.9) 05/25/20 12:25 Hct 40.1 % (35.4-49) 05/25/20 12:25 MCV 85.7 fl (80-96) 05/25/20 12:25 MCH 28.8 pg (25.7-33.7) 05/25/20 12:25 MCHC 33.6 g/dl (32.0-35.9) 05/25/20 12:25 RDW 15.1 % (11.9-15.9) D 05/25/20 12:25 Plt Count 147 K/MM3 (134-434) 05/25/20 12:25 MPV 9.5 fl (7.5-11.1) 05/25/20 12:25 Sodium 140 mmol/L (136-145) 05/25/20 12:25 Potassium 4.0 mmol/L (3.5-5.1) 05/25/20 12:25 Chloride 106 mmol/L (98-107) 07/13/20 12:25 Carbon Dioxide 24 mmol/L (21-32) 05/25/20 12:25 Anion Gap 10 MMOL/L (8-16) 05/25/20 12:25 BUN 17.4 mg/dL (7-18) 05/25/20 12:25 Creatinine 1.0 mg/dL (0.55-1.3) 05/25/20 12:25 Est GFR (CKD-EPI)AfAm 96.40 05/25/20 12:25 Est GFR (CKD-EPI)NonAf 83.18 05/25/20 12:25 Random Glucose 130 mg/dL (74-106) H 05/25/20 12:25 Calcium 9.4 mg/dL (8.5-10.1) 05/25/20 12:25 Total Bilirubin 0.6 mg/dL (0.2-1) 05/25/20 12:25 AST 43 U/L (15-37) H 05/25/20 12:25 ALT 45 U/L (13-61) 05/25/20 12:25 Alkaline Phosphatase 97 U/L (45-117) 05/25/20 12:25 Total Protein 7.8 g/dl (6.4-8.2) 05/25/20 12:25 Albumin 3.8 g/dl (3.4-5.0) 05/25/20 12:25 Syphilis Serology Non-reactive (NONREACTIVE) 05/25/20 12:25 COVID-19 (THIERRY) Not detected (Not Detected) 05/25/20 12:50 HIV Ag/Ab Combo Qual Negative (NEGATIVE) 05/26/20 08:15 Pertinent Admission Physical Exam Findings: Alcohol withdrawal symptoms Opioid withdrawal symptoms - Medication Discharge Medications: Ambulatory Orders Albuterol Sulfate Inhaler - [Ventolin Hfa Inhaler -] 2 inh PO Q6H 10/13/17 - Diagnosis (1) Alcohol dependence with uncomplicated withdrawal Status: Chronic (2) Nicotine dependence Status: Chronic Qualifiers: Nicotine product type: cigarettes Substance use status: uncomplicated Qualified Code(s): F17.210 - Nicotine dependence, cigarettes, uncomplicated (3) Opioid dependence with withdrawal Status: Chronic (4) Cannabis dependence Status: Chronic (5) Substance induced mood disorder Status: Chronic (6) Asthma Status: Chronic Qualifiers: Asthma severity: mild Asthma persistence: unspecified Asthma complication type: unspecified Qualified Code(s): J45.909 - Unspecified asthma, uncomplicated - AMA Did Patient Leave Against Medical Advice: Yes
[2020-05-27] MEDS ORDERED: chlordiazePOXIDE HCL 25 MG CAPSULE PO SCH (05:00)
[2020-05-27] MEDS ORDERED: METHADONE HCL 10 MG TABLET (FOR DETOX USE ONLY) PO ONE (10:00)
[2020-05-28] MEDS ORDERED: chlordiazePOXIDE HCL 10 MG CAPSULE PO PRN
[2020-05-28] MEDS ORDERED: chlordiazePOXIDE HCL 10 MG CAPSULE PO SCH (05:00)
[2020-05-28] MEDS ORDERED: METHADONE (DETOX) 10 MG, METHADONE (DETOX) 5 MG PO ONE (10:00)
[2020-05-29] MEDS ORDERED: chlordiazePOXIDE HCL 10 MG CAPSULE PO SCH (05:00)
[2020-05-29] MEDS ORDERED: METHADONE HCL 10 MG TABLET (FOR DETOX USE ONLY) PO ONE (10:00)
[2020-05-30] MEDS ORDERED: chlordiazePOXIDE HCL 10 MG CAPSULE PO ONE (05:00)
[2020-05-30] MEDS ORDERED: METHADONE HCL 5 MG TABLET (FOR DETOX USE ONLY) PO ONE (06:00)
== END 2020-05-26 18:45 | disposition left against medical advice (07) | DRG 770 ==
LOC: YASAS 10:44 → Y3N 12:48
PROVIDERS: ADMIT Allergy & Immunology; ATTEND Allergy & Immunology
PROC: HZ2ZZZZ Detoxification Services for Substance Abuse Treatment (ICD-10-PCS; principal; 2020-05-25)
DX: F10.230 Alcohol dependence with withdrawal, uncomplicated (principal); F11.23 Opioid dependence with withdrawal; F12.20 Cannabis dependence, uncomplicated; F17.210 Nicotine dependence, cigarettes, uncomplicated; J45.909 Unspecified asthma, uncomplicated; Z56.0 Unemployment, unspecified; Z59.0 Homelessness; Z87.828 Personal history of other (healed) physical injury and trauma
CPT/HCPCS: 36415; 71046-TC-FY; 80053; 85027; 86780; 87389; 93005; 93010; U0003